=== PATIENT | female | born 1940 | race Caucasian/White ===

== ENCOUNTER 2022-05-15 10:03 | Emergency (ER) | payer MEDICARE ==
[~2022-05-15] VITALS: Ht 160 cm; Wt 65.9 kg
[~2022-05-15 10:03] MED LIST: ANAS1TAB10 PO; BETA1TAB19 PO; CHOL10006 PO; DILT-35 PO; METO-384 PO; YEAS680T2
[2022-05-15 11:15] VITALS: BP 116/73
[2022-05-15] MEDS ORDERED: HYDR-3965 PO (12:47)
== END 2022-05-15 13:03 | disposition home or self-care (01) ==
LOC: ER 10:04
DX: R60.0 Localized edema (principal); R00.0 Tachycardia, unspecified; M25.562 Pain in left knee; Z88.8 Allergy status to other drugs, medicaments and biological substances; Z79.899 Other long term (current) drug therapy
CPT/HCPCS: 73560; 93005; 93971; 99284

== ENCOUNTER 2023-02-09 15:00 | Outpatient (CLI) | payer MEDICARE | END 2023-02-09 23:59 | disposition home or self-care (01) | LOC: CARD DIAG 15:00 | PROVIDERS: ATTEND Internal Medicine Cardiovascular Disease | DX: I08.3 Combined rheumatic disorders of mitral, aortic and tricuspid valves (principal); I42.1 Obstructive hypertrophic cardiomyopathy; R06.02 Shortness of breath | CPT/HCPCS: 93306 ==

== ENCOUNTER 2023-10-23 12:11 | Emergency (ER) | payer MEDICARE ==
[~2023-10-23] VITALS: Ht 165.1 cm; Wt 61.9 kg
[2023-10-23 12:12] VITALS: BP 133/63; PULSE 52; RESP 16; TEMP 98.3; O2SAT 97
== END 2023-10-23 16:50 | disposition left against medical advice (07) ==
LOC: ER 12:11
DX: S01.21XA Laceration without foreign body of nose, initial encounter (principal); Z53.21 Procedure and treatment not carried out due to patient leaving prior to being seen by health care provider; X58.XXXA Exposure to other specified factors, initial encounter; Y93.89 Activity, other specified; Y92.89 Other specified places as the place of occurrence of the external cause; Y99.8 Other external cause status
CPT/HCPCS: 70450; 70486; 72125; 99281

== ENCOUNTER 2023-10-24 08:11 | Emergency (ER) | payer MEDICARE ==
[~2023-10-24] VITALS: Ht 160 cm; Wt 60.0 kg
[2023-10-24 08:21] VITALS: BP 130/83; PULSE 78; RESP 18; TEMP 97.8; O2SAT 98
== END 2023-10-24 09:42 | disposition home or self-care (01) ==
LOC: ER 08:11
DX: S00.10XD Contusion of unspecified eyelid and periocular area, subsequent encounter (principal); Z87.891 Personal history of nicotine dependence; Z79.899 Other long term (current) drug therapy; Z88.7 Allergy status to serum and vaccine; W19.XXXD Unspecified fall, subsequent encounter
CPT/HCPCS: 99281; 99283

== ENCOUNTER 2024-05-26 15:40 | Emergency (ER) | payer MEDICARE ==
[~2024-05-26] VITALS: Ht 157.5 cm; Wt 60.5 kg
[2024-05-26 15:50] VITALS: BP 107/71; PULSE 94; RESP 16; TEMP 98.3; O2SAT 97
== END 2024-05-26 16:51 | disposition left against medical advice (07) ==
LOC: ER 15:41
DX: R04.2 Hemoptysis (principal); Z53.21 Procedure and treatment not carried out due to patient leaving prior to being seen by health care provider
CPT/HCPCS: 71045

== ENCOUNTER 2024-05-30 10:56 | Emergency (ER) | payer MEDICARE ==
[~2024-05-30] VITALS: Ht 162.6 cm; Wt 60.9 kg
[2024-05-30 11:57] VITALS: BP 123/75; PULSE 77; RESP 14; TEMP 97.8; O2SAT 98
== END 2024-05-30 11:58 | disposition home or self-care (01) ==
LOC: ER 10:58
DX: S00.83XA Contusion of other part of head, initial encounter (principal); Z88.7 Allergy status to serum and vaccine; I10 Essential (primary) hypertension; W22.8XXA Striking against or struck by other objects, initial encounter; Y93.89 Activity, other specified; Y92.89 Other specified places as the place of occurrence of the external cause; Y99.8 Other external cause status
CPT/HCPCS: 99284